=== PATIENT | male | born 1995 | race African-American/Black ===

== ENCOUNTER 2017-11-22 04:23 | Emergency (ER) | payer SELFPAY ==
[2017-11-22] MEDS ORDERED: Benzonatate 100 MG CAP ONE (04:44)
== END 2017-11-22 04:51 | disposition home or self-care (01) ==
LOC: NAV ERS 04:23
DX: J20.9 Acute bronchitis, unspecified (principal); J45.909 Unspecified asthma, uncomplicated
CPT/HCPCS: 99283

== ENCOUNTER 2018-03-22 14:05 | Emergency (ER) | payer SELFPAY ==
[2018-03-22] MEDS ORDERED: Ketorolac Tromethamine 60 MG/2 ML VIAL ONE (14:29)
[2018-03-22] MEDS ORDERED: Cyclobenzaprine 10 MG TAB ONE (14:37)
== END 2018-03-22 15:25 | disposition home or self-care (01) ==
LOC: NAV ERS 14:05
DX: S39.012A Strain of muscle, fascia and tendon of lower back, initial encounter (principal); J45.909 Unspecified asthma, uncomplicated; X50.1XXA Overexertion from prolonged static or awkward postures, initial encounter
CPT/HCPCS: 96372; J1885

== ENCOUNTER 2018-12-21 13:47 | Emergency (ER) | payer SELFPAY | END 2018-12-21 14:20 | disposition home or self-care (01) | LOC: NAV ERS 13:47 | DX: H66.92 Otitis media, unspecified, left ear (principal); J45.909 Unspecified asthma, uncomplicated | CPT/HCPCS: 99282 ==